=== PATIENT | female | born 1945 | race Caucasian/White ===

== ENCOUNTER → 2016-12-29 | Outpatient (CLI) | payer OTHER, MEDICARE | LOC: BHFA 13:45 | PROVIDERS: ATTEND Internal Medicine Cardiovascular Disease | DX: I48.91 Unspecified atrial fibrillation (principal); I34.0 Nonrheumatic mitral (valve) insufficiency; I07.0 Rheumatic tricuspid stenosis; I27.2 Other secondary pulmonary hypertension; I25.10 Atherosclerotic heart disease of native coronary artery without angina pectoris; I10 Essential (primary) hypertension ==

== ENCOUNTER 2017-02-22 06:12 | Inpatient (IN) | payer OTHER, MEDICARE ==
[2017-02-22] MEDS ORDERED: LIDOCAINE 1% 2 ML INJ ONE (06:52)
[2017-02-22] MEDS ORDERED: MIDAZOLAM 2 MG/2 ML VIAL ONE (06:58)
[2017-02-22] MEDS ORDERED: PROPOFOL/EMULSION 500 MG/50 ML BOTTLE IV ONE ×5 (06:59→11:54)
[2017-02-22] MEDS ORDERED: REMIFENTANIL HCL 1 MG VIAL ONE (06:59)
[2017-02-22] MEDS ORDERED: fentaNYL 100 MCG/2 ML INJ ONE ×2 (06:59)
[2017-02-22] MEDS ORDERED: LIDOCAINE 2% 5 ML SDV ONE (07:01)
[2017-02-22] MEDS ORDERED: CEFAZOLIN 2 GM/DEXTROSE/100 ML BAG IV ONE (07:16)
[2017-02-22] MEDS ORDERED: BUPIVACAINE/EPI 0.25% 30 ML SDV ONE ×2 (07:25→07:45)
[2017-02-22] MEDS ORDERED: THROMBIN (BOVINE) 20,000 UNIT VIAL TP ONE (07:25)
[2017-02-22] MEDS ORDERED: BACITRACIN 50,000 UNITS/10 ML SYR IRR ONE ×2 (07:26→10:17)
[2017-02-22] MEDS ORDERED: ceFAZolin 2 GM/DEXTROSE 100 ML IV ONE (07:30)
[2017-02-22] MEDS ORDERED: LIDOCAINE 1% 5 ML SDV ID PRN (07:40)
[2017-02-22] MEDS ORDERED: LR 1,000 ML IV ONE (07:40)
[2017-02-22] MEDS ORDERED: DEXMEDETOMIDINE HCL 400 MCG in NS 100 ML IV SCH ×2 (08:00→13:30)
[2017-02-22] MEDS ORDERED: CITRATE DEXTROSE SOLN 500 ML BAG ONE (08:18)
[2017-02-22] MEDS ORDERED: ALBUMIN 5% 250 ML BOTTLE IV ONE (09:34)
[2017-02-22] MEDS ORDERED: ROCURONIUM 50 MG/5 ML VIAL ONE (09:34)
[2017-02-22] MEDS ORDERED: morphINE PF 10 MG/10 ML INJ ONE (09:39)
[2017-02-22] MEDS ORDERED: PHENYLEPHRINE 10 MG/ML SDV ONE (09:49)
[2017-02-22] MEDS ORDERED: DEXAMETHASONE 4 MG/ML VIAL ONE (12:21)
[2017-02-22] MEDS ORDERED: VASOPRESSIN 20 UNIT/ML VIAL ONE (12:22)
[2017-02-22] MEDS ORDERED: ceFAZolin 1 GM VIAL ONE (12:22)
[2017-02-22] MEDS ORDERED: ONDANSETRON 4 MG/2 ML VIAL ONE (12:22)
[2017-02-22] MEDS ORDERED: DOCUSATE SODIUM 100 MG CAP PO PRN (13:15)
[2017-02-22] MEDS ORDERED: POLYETHYLENE GLYCOL 3350 17 GM PKT PO PRN (13:15)
[2017-02-22] MEDS ORDERED: ONDANSETRON DISINTEGRATING 4 MG TAB PO PRN (13:20)
[2017-02-22] MEDS ORDERED: BISACODYL 10 MG SUPP PR PRN (13:20)
[2017-02-22] MEDS ORDERED: LACTULOSE 20 GM/30 ML UDCUP PO PRN (13:20)
[2017-02-22] MEDS ORDERED: MAGNESIUM HYDROXIDE 30 ML UDCUP PO PRN (13:20)
[2017-02-22] MEDS ORDERED: diphenhydrAMINE 25 MG CAP PO PRN (13:20)
[2017-02-22] MEDS ORDERED: PROMETHAZINE HCL 25 MG/ML INJ IVP PRN (13:20)
[2017-02-22] MEDS ORDERED: ONDANSETRON 4 MG/2 ML VIAL IVP PRN (13:20)
[2017-02-22] MEDS ORDERED: METHOCARBAMOL 750 MG TAB PO PRN (13:20)
[2017-02-22] MEDS ORDERED: ACETAMINOPHEN 325 MG TAB PO PRN (13:20)
[2017-02-22] MEDS ORDERED: DIAZEPAM 10 MG/2 ML SYR IVP PRN (13:20)
--- NOTE | 2017-02-22 13:31 | POSTOPPROG ---
Post Op Note Date of Operation: 02/22/17 Surgeon: Soheila Carreon Spool Hauler: Grisel Carreon PA-C Anesthesiologist: Naveen Anesthesia: GET(General Endotracheal) Pre-op Diagnosis: lumbar stenosis Post-op Diagnosis: same Indication: pain, weakness Procedure: hardware removal, L23 TLIF, L1-4 posterior fusion Findings: Please see Dr Mahajan's operative report Inf/Abcess present in the surg proc area at time of surgery?: No Depth: Organ Space EBL: Greater than 1000 Complications: none Drains: Eber James Specimen(s): none PA Addendum - Addendum .: S: Pt resting in bed, asking for drink of water O: AAOx3 NAD VSS MAEx4 Motor 5/5 BUE/BLE +LT Incision dressed JPx1 Jackson in A: 71 yo F s/p hardware removal, L23 TLIF, L1-4 posterior fusion P: Pain management Brace when OOB TEDs, SCDs, lovenox POD#1 Post op xrays pending DC jackson in AM Precedex Call NS with any issues
--- NOTE | 2017-02-22 14:13 | GOP ---
[f rep st] OPERATIVE REPORT DATE OF OPERATION: 02/22/2017 SURGEON: Alphonse Evans MD TICKET PRINTER AND TAGGER: TONY Hernandez COMPLICATIONS: None ANESTHESIA: General. PREOPERATIVE DIAGNOSIS: 1. History of prior lumbar fusion L1-L2 and L3-S1 with adjacent level breakdown at L2-3 and severe spinal stenosis. 2. Radiculopathy. 3. Leg weakness. 4. Treatment refractory to nonoperative intervention PROCEDURE PERFORMED: 1. Posterior arthrodesis with approach to L1, L2, L3, L4, and L5. 2. Exploration of prior hardware at L1-L2 and L3-L4-L5. 3. Removal of prior hardware, left L2, bilateral L3, L4, and L5 posterior fusion systems. 4. Replacement of new left L2, bilateral L3 and bilateral L4 pedicle screws from the foc.usra system. 5. Posterolateral fusion on the left between L2-L3 with morselized autograft and allograft. 6. L2-L3 decompressive laminectomy with microdiskectomy and spinal cord decompression. 7. Right-sided L2-L3 transforaminal lumbar interbody fusion with a 6 x 26 mm titanium coated PEEK cage filled with morselized autograft and allograft. 8. Use of intraoperative 3D Stealth navigation. 9. Use of intraoperative fluoroscopy, less than 1 hour physician time. 10. Use of neuromonitoring. 11. Use of the operating microscope. 12. Injection of preservative-free intrathecal narcotics. 13. Revision of scar tissue, greater than 10 cm in length. POSTOPERATIVE DIAGNOSIS: 1. History of prior lumbar fusion L1-L2 and L3 through S1 with adjacent level breakdown at L2-3 with severe spinal stenosis. 2. Radiculopathy. 3. Leg weakness. 4. Treatment refractory to nonoperative intervention FINDINGS: per imaging SPECIMENS: None. ESTIMATED BLOOD LOSS: 1000 mL with replacement of 750 mL with Cell Saver. INDICATIONS: The patient is a 71-year-old, who has undergone multiple spinal fusions in the past and had a prior fusion at L1-L2 and L3 through S1. She had evidence of adjacent level breakdown between the L2-3 level with severe spinal stenosis and degenerative disk disease. After failing nonoperative intervention , after discussion of the risks, benefits, and alternatives, we decided to proceed forth with surgery as described above. DESCRIPTION OF PROCEDURE: The patient was brought to the operating theater and underwent general endotracheal anesthesia without complications. She had Venodynes, KANDACE hose and appropriate lines placed by Anesthesia. She was then flipped prone onto the Eber table. All bony processes were inspected and padded. The previous midline lumbar incision was identified and prepped and draped in the usual sterile surgical fashion. Time-out was completed per protocol. The patient received antibiotics within 1 hour of incision. The incision was infiltrated with Marcaine with epinephrine. I made an elliptical incision around the prior scar tissue approximately 12 cm in length and excised this with the scalpel blade and Bovie. The tissues were then taken down the midline through the scar tissue to the spinous process of L1-L2. We then continued in a subperiosteal dissection out to the old previous hardware laterally at the L1-L2 levels. We then skipped down to the L3 level. Again, we reidentified the hardware bilaterally and exposed the remainder of the hardware bilaterally at L3, L4, L5, and S1. The remainder of the hardware was exposed and explored, L1-L2 and L3 through S1. She was noted to have solid bony fusion throughout the L1-L2 and L3-S1 levels. At this point, using chisels and the Leksell rongeurs, I removed the excess bony overgrowth over the previous hardware. We sequentially removed the cap screws from the bilateral Q3-M6-B7-L4- L5 and S1 levels and passed them off the field. We then removed the bilateral rods between L1-L2 and between L3 and S1, including the crosslink, and passed these off the field. We then sequentially removed the bilateral pedicle screws from the L3-L4-L5 and S1 levels from the Medtronic Legacy System and passed them off the field. We then replaced the bilateral L3 and L4 pedicle screws with 6.5 x 50 mm screws bilaterally at L3 and 6.5 x 40 mm screws bilaterally at L4 from the Medtronic Solera system. We removed the left L2 pedicle screw and replaced it with a 6.5 x 40 mm screw from the Medtronic Solera system. A 3D Stealth navigation spin demonstrated good placement of the hardware. At this point, using the 3D Stealth -navigation, we exposed the remainder of the hemilaminotomy and laminectomy sites and completed a decompressive laminectomy at L2-L3 with resection of the pars between the L2-3 level on the right side. We retracted the thecal sac medially to reach around the ventral aspect and we were able to pull out several free fragments of disk material, both from the lateral recess and centrally using the angled nerve hooks. We retracted the thecal sac medially and completed a right-sided L2-3 diskectomy. We prepared the cartilaginous endplates and measured the interbody space. We placed a 6 x 26 mm titanium coated PEEK cage filled with a morselized autograft and allograft anteriorly and toward the midline. We packed additional morcellized autograft into the disk space for the interbody fusion and decorticated the bone on the left side between L2-3 for the posterolateral fusion. We placed 2 lordotic rods in the heads of the screws between L1 and L4 and secured down with cap screws, which were then tightened per the chlorine operator's setting. We placed morselized autograft and allograft to the left side between L2 through 3 for posterolateral fusion. We injected preservative-free intrathecal narcotics and left a drain in subfascial space. The wound was closed in multiple layers using Vicryl sutures to the deep layers and Dermabond for the skin after revising the wound. The patient's wounds were dressed sterilely. She was flipped supine onto the transfer cart. She was awakened, extubated, and taken to the recovery room in stable condition. There were no complications and no other changes on neuromonitoring throughout the procedure. Please note, the surgery was greater than 50% more challenging than the average surgery secondary to the patient's body habitus, including her scar tissue and exploration and removal of the prior hardware. /[id number]/MODL MTDD
[2017-02-22] MEDS: NS W/ 20 KCl/L 1,000 ML IV SCH (15:11)
[2017-02-22] MEDS: GABAPENTIN 300 MG CAP PO SCH ×2 (15:52→20:42)
[2017-02-22] MEDS: HYDROmorphONE/DILAUDID 1 MG/ML SYR IVP PRN (16:14)
--- NOTE | 2017-02-22 16:38 | GCON ---
[f rep st] CONSULTATION DATE OF CONSULTATION: 02/22/2017 REFERRING PHYSICIAN: Alphonse Evans MD REASON: Medical management. HISTORY OF PRESENT ILLNESS: This is a 71-year-old female who was admitted for spinal stenosis. Maryam garcia is a redo of a previous surgery, and she underwent removal and replacement of hardware from essent ially L1 to S1. Apparently surgery went well with 1000 mL of blood loss, and 750 was replaced by Ce ll Saver. She has a history of atrial fibrillation, has been off her Eliquis for the last week. Josie ferrer also has a history of hypothyroidism and anxiety. She is doing well postoperatively. She is comp laining of right hand numbness. It is not in her arm. She has no weakness. Feels like her hand is asleep. She does have an IV in her left distal forearm right in the middle which may be aggravatin g her median nerve. Otherwise, she is feeling well. No chest pain. She is in sinus rhythm on tele metry. REVIEW OF SYSTEMS: A 10-point review of systems was obtained and is otherwise negative. PAST MEDICAL HISTORY: 1. Previous back pain and lumbar fusion. 2. Atrial fibrillation, status post cardioversion several times with last one last year. 3. Hypothyroidism. 4. Previous lumbar surgery at [facility] in 2014 with multiple complications including dural leak, sep sis, and atrial fibrillation. 5. History of MRSA infection during that time. 6. Depression. 7. Hypertension. MEDICATIONS: Reviewed. ALLERGIES: CHRISTIANO inhibitors. FAMILY HISTORY: Colon cancer. SOCIAL HISTORY: No smoking. Occasional alcohol. PHYSICAL EXAM: VITAL SIGNS: Afebrile, blood pressure is 108/60, heart rate in the 60s. Normal sin us rhythm. Oxygen saturation 98% on 3 L. GENERAL: The patient is well developed, no apparent dist ress. HEENT: Nonicteric sclerae. Extraocular movements intact. Moist mucous membranes. NECK: S upple. No thyromegaly. LUNGS: Good effort. Clear to auscultation bilaterally. CARDIOVASCULAR: Regular rate and rhythm. No murmurs or gallops. ABDOMEN: Positive bowel sounds. Soft, nontender, nondistended. No hepatosplenomegaly. EXTREMITIES: No clubbing, cyanosis, or edema. SKIN: Witho ut rash. Warm, dry, intact. NEUROLOGIC: Alert x3. there is decreased sensation in the right hand but normal fundraiser strength. This does not go beyond the hand. PSYCH: Normal mood and affect. LABORATORIES: Preop labs shows CBC which is normal, chemistry which is also normal. Telemetry personally reviewed and interpreted shows normal sinus rhythm. ASSESSMENT: This is a 71-year-old female with a history of atrial fibrillation, status post lumbar surgery. PLAN: 1. Status post extensive lumbar surgery as per Neurosurgery. 2. Atrial fibrillation. Will continue on the flecainide and atenolol. Start anticoagulation whene kesha appropriate per Neurosurgery. 3. Right-handed numbness. I think this may be some median nerve irritation from her IV. I have in structed the nurse to take this IV out. 4. History of MRSA. Thank you for this consultation, and we will follow along with you. /[id number]/MODL
[2017-02-22] MEDS ORDERED: GABAPENTIN 300 MG CAP PO PRN (17:00)
[2017-02-22] MEDS: hydrOXYzine HCL 25 MG TAB PO PRN ×2 (17:30→23:36)
[2017-02-22] MEDS: FLECAINIDE ACETATE 100 MG TAB PO SCH (20:41)
[2017-02-22] MEDS: DIAZEPAM 5 MG TAB PO PRN (20:43)
[2017-02-22] MEDS: CYCLOBENZAPRINE 10 MG TAB PO SCH (20:43)
[2017-02-22] MEDS: morphINE SR 15 MG TAB PO SCH (20:45)
[2017-02-22] MEDS: traZODone 50 MG TAB PO SCH (20:45)
[2017-02-22] MEDS: SENNOSIDES/DOCUSATE SODIUM TAB PO SCH (20:46)
[2017-02-22] MEDS: FAMOTIDINE 20 MG/NACL 50 ML IV SCH (20:57)
[2017-02-23] MEDS: NS W/ 20 KCl/L 1,000 ML IV SCH (02:59)
[2017-02-23] MEDS: LEVOTHYROXINE 150 MCG TAB PO SCH (05:01)
[2017-02-23 05:36] LABS: % IMMATURE GRANULYOCYTES 0.6 % (0.0-1.1); ABSOLUTE IMMATURE GRANULOCYTES 0.08 10^3/uL (0.00-0.10); ADD DIFF? NO; ADD MORPH? NO; ADD SCAN? NO; ATYPICAL LYMPHOCYTE FLAG 0 (0-99); FRAGMENT RBC FLAG 0 (0-99); HEMATOCRIT 29.7 % (38.0-47.0); HEMOGLOBIN 9.4 g/dL (12.6-16.3); LEFT SHIFT FLG 0 (0-99); LIPEMIA HEMOLYSIS FLAG 80 (0-99); MEAN CELL HEMOGLOBIN 28.3 pg (27.9-34.1); MEAN CELL HEMOGLOBIN CONCENTR. 31.6 g/dL (32.4-36.7); MEAN CELL VOLUME 89.5 fL (81.5-99.8); MEAN PLATELET VOLUME 10.7 fL (8.7-11.7); PLATELET CLUMPS FLAG 0 (0-99); PLATELET COUNT 172 10^3/uL (150-400); RED BLOOD CELL COUNT 3.32 10^6/uL (4.18-5.33); RED CELL DISTRIBUTION WIDTH 15.3 % (11.5-15.2)
[2017-02-23] MEDS: hydrOXYzine HCL 25 MG TAB PO PRN ×3 (05:39→18:07)
[2017-02-23] MEDS: oxyCODONE IR 5 MG TAB PO PRN ×3 (07:03→18:59)
[2017-02-23 07:54] LABS: ANION GAP 9 mEq/L (8-16); CALCIUM 8.4 mg/dL (8.5-10.4); CARBON DIOXIDE 22 mEq/l (22-31); CHLORIDE 99 mEq/L (97-110); GLOMERULAR FILTRATION RATE 54; GLUCOSE 113 mg/dL (70-100); POTASSIUM 4.9 mEq/L (3.5-5.2); SODIUM 130 mEq/L (134-144)
[2017-02-23] MEDS: DIAZEPAM 5 MG TAB PO PRN ×2 (08:12→14:28)
[2017-02-23] MEDS: morphINE SR 15 MG TAB PO SCH ×2 (08:12→20:16)
[2017-02-23] MEDS: GABAPENTIN 300 MG CAP PO SCH ×3 (08:13→21:26)
[2017-02-23] MEDS: VENLAFAXINE HCL 25 MG TAB PO SCH (08:16)
[2017-02-23] MEDS: LIOTHYRONINE SODIUM 5 MCG TAB PO SCH (08:17)
[2017-02-23] MEDS: FAMOTIDINE 20 MG/NACL 50 ML IV SCH ×2 (08:19→21:27)
[2017-02-23] MEDS: FLECAINIDE ACETATE 100 MG TAB PO SCH ×2 (08:20→20:16)
[2017-02-23] MEDS: SENNOSIDES/DOCUSATE SODIUM TAB PO SCH ×2 (08:23→20:20)
[2017-02-23] MEDS: POTASSIUM CL 20 MEQ TAB PO SCH (08:23)
[2017-02-23] MEDS: FUROSEMIDE 40 MG TAB PO SCH (08:28)
[2017-02-23] MEDS: ENOXAPARIN 40 MG/0.4 ML SYR SC SCH (08:28)
[2017-02-23] MEDS: ATENOLOL 25 MG TAB PO SCH (09:00)
--- NOTE | 2017-02-23 09:29 | NEUSURGPN ---
Date of Surgery: 02/22/17 Post Op Day: 1 Assessment/Plan: 71 yo female s/p hardware removal, L2/3 TLIF/laminectomy, and L1-L4 posterior fusion - neuro stable. Right UE numbness likely due to positioning, continue to monitor - pain control - postop L-spine x-rays pending - wear brace when out of bed - PT/OT - Continue LUCIANO - Transfer to the floor Subjective: Having back pain. Unsure if LE weakness is improved. Was unable to sleep last night. Objective: Awake. Alert. PERRL. EOMI Facial expression symmetrical Muscle strength UE 5/5 Left LE 5/5, Right LE hip flexion 3/5, knee flex/ext 4-/5, DF/PF 3/5 Catheter Insertion Date: 02/22/17 - Physician Patient Seen by : Nathan Neurosurgery Physical Exam - Vitals, I&O, Labs I and O 02/22/17 02/23/17 02/24/17 05:59 05:59 05:59 Intake Total 4538 Output Total 3565 100 Balance 973 -100 Intake: Oral (ml) 1050 IV Intake (ml) 1650 IV Infused (ml) 1088 Famotidine 20 mg/NaCl 50 50 ml @ 200 mls/hr IV Q12HRS MARZENA Rx#:[id number] NS W/ 20 KCl/L 1,000 ml @ 573 75 mls/hr IV CONT MARZENA Rx #:[id number] ceFAZolin 2 GM/DEXTROSE 465 100 ml @ 200 mls/hr IV ONCALL ONE Rx#:[id number] Autologous Blood (ml) 750 Output: Urine (ml) 1925 100 Catheter 1925 100 Estimated Blood Loss (ml) 1200 Wound Drainage (ml) 440 Back Eber James 440 Vital Signs Temp Pulse Resp BP Pulse Ox 36.8 C 74 13 114/36 L 97 02/23/17 08:00 02/23/17 08:00 02/23/17 08:00 02/23/17 08:00 02/23/17 08:00 Laboratory Results 02/23/17 05:20 02/23/17 05:20 ICD10 Worksheet Patient Problems: Problems Problem Status Onset Lumbar stenosis Acute - ICD10 Problem Qualifiers (1) Lumbar stenosis
[2017-02-23] MEDS: HYDROmorphONE/DILAUDID 1 MG/ML SYR IVP PRN (11:36)
--- NOTE | 2017-02-23 13:42 | HOSPPROG ---
Hospitalist Progress Note Assessment/Plan: * status post lumbar fusion revision * doing well postoperatively * do wonder if the itching is due to the MS Contin which is new for her, would consider stopping this * history of atrial fibrillation * in sinus rhythm currently * restart Eliquis whenever safe per neurosurgery * hypertension * history of MRSA * DVT prophylaxis * Lovenox Subjective: right hand numbness improving. Feels itchy all over which has kept her up all night. Pain is pretty well controlled Objective: Vital Signs Temp Pulse Resp BP Pulse Ox 36.8 C 90 13 114/36 L 88 L 02/23/17 08:00 02/23/17 11:30 02/23/17 08:00 02/23/17 08:00 02/23/17 11:30 Laboratory Results 02/23/17 05:20 02/23/17 05:20 02/22/17 02/23/17 02/24/17 05:59 05:59 05:59 Intake Total 4538 Output Total 3565 180 Balance 973 -180 tele personally reviewed interpreted normal sinus rhythm discussed with Neurosurgery - Physical Exam Constitutional: no apparent distress, appears nourished, not in pain Eyes: anicteric sclera, EOMI Ears, Nose, Mouth, Throat: moist mucous membranes, hearing normal, ears appear normal Cardiovascular: regular rate and rhythym, no murmur, rub, or gallop Respiratory: no respiratory distress, no rales or rhonchi, clear to auscultation Gastrointestinal: normoactive bowel sounds, soft, non-tender abdomen, no palpable masses Skin: warm Neurologic: AAOx3, other ( no weakness in right hand) Psychiatric: interacting appropriately, not anxious, not encephalopathic, thought process linear ICD10 Worksheet Patient Problems: Problems Problem Status Onset Lumbar stenosis Acute
[2017-02-23] MEDS: traZODone 50 MG TAB PO SCH (20:16)
[2017-02-23] MEDS: CYCLOBENZAPRINE 10 MG TAB PO SCH (20:16)
[2017-02-23] MEDS ORDERED: ALPRAZolam 0.25 MG TAB PO PRN (20:47)
[2017-02-24] MEDS: oxyCODONE IR 5 MG TAB PO PRN ×2 (05:10→16:42)
[2017-02-24] MEDS: LEVOTHYROXINE 150 MCG TAB PO SCH (05:11)
[2017-02-24] MEDS: DIAZEPAM 5 MG TAB PO PRN (05:21)
--- NOTE | 2017-02-24 08:02 | NEUSURGPN ---
Assessment/Plan: 71 yo female s/p hardware removal, L2/3 TLIF/laminectomy, and L1-L4 posterior fusion - neuro stable. Right UE numbness likely due to positioning, continue to monitor - pt states this is improving - pruritis improving - pain control - postop L-spine x-rays pending - wear brace when out of bed - PT/OT - urinary retention - bladder scan protocol. has required straight cath x2 - if not able to void again today replace jackson. - Continue LUCIANO - Transfer to the floor - D/w Dr Evans - Call NS with any issues Subjective: Pt resting in bed, worried about not being able to urinate. Objective: Sleepy but awakens easily NAD VSS MAEx4 Motor 5/5 BLE with exception of R EHL 4/5 +LT JPx1 Urinary Catheter in Place: No Catheter Insertion Date: 02/22/17 - Physician Discussed Patient with : Nathan Neurosurgery Physical Exam - Vitals, I&O, Labs I and O 02/23/17 02/24/17 02/25/17 05:59 05:59 05:59 Intake Total 4538 1620 Output Total 3565 2270 Balance 973 -650 Intake: Oral (ml) 1050 1220 IV Intake (ml) 1650 IV Infused (ml) 1088 400 Famotidine 20 mg/NaCl 50 50 ml @ 200 mls/hr IV Q12HRS MARZENA Rx#:[id number] NS W/ 20 KCl/L 1,000 ml @ 573 400 75 mls/hr IV CONT MARZENA Rx #:[id number] ceFAZolin 2 GM/DEXTROSE 465 100 ml @ 200 mls/hr IV ONCALL ONE Rx#:[id number] Autologous Blood (ml) 750 Output: Urine (ml) 1925 1850 Catheter 192 1850 Estimated Blood Loss (ml) 1200 Wound Drainage (ml) 440 420 Back Eber Jmaes 440 420 Other: Output Comment Catheter straight cathed Bladder Scan Volume (ml) Catheter 183 Vital Signs Temp Pulse Resp BP Pulse Ox 36.4 C 93 14 114/57 L 100 02/24/17 07:38 02/24/17 07:38 02/24/17 07:38 02/24/17 07:38 02/24/17 07:38 Laboratory Results 02/23/17 05:20 02/23/17 05:20 ICD10 Worksheet Patient Problems: Problems Problem Status Onset Lumbar stenosis Acute
[2017-02-24] MEDS: GABAPENTIN 300 MG CAP PO SCH ×3 (08:36→20:10)
[2017-02-24] MEDS: POTASSIUM CL 20 MEQ TAB PO SCH (08:36)
[2017-02-24] MEDS: LIOTHYRONINE SODIUM 5 MCG TAB PO SCH (08:36)
[2017-02-24] MEDS: FLECAINIDE ACETATE 100 MG TAB PO SCH ×2 (08:37→20:10)
[2017-02-24] MEDS: SENNOSIDES/DOCUSATE SODIUM TAB PO SCH ×2 (08:37→20:09)
[2017-02-24] MEDS: FAMOTIDINE 20 MG/NACL 50 ML IV SCH (08:38)
[2017-02-24] MEDS: VENLAFAXINE HCL 25 MG TAB PO SCH (08:38)
[2017-02-24] MEDS: morphINE SR 15 MG TAB PO SCH ×2 (08:38→20:13)
[2017-02-24] MEDS: FUROSEMIDE 40 MG TAB PO SCH (08:38)
[2017-02-24] MEDS: ATENOLOL 25 MG TAB PO SCH (08:38)
[2017-02-24] MEDS: ENOXAPARIN 40 MG/0.4 ML SYR SC SCH (08:38)
--- NOTE | 2017-02-24 09:54 | HOSPPROG ---
Hospitalist Progress Note Assessment/Plan: 71 yo F pod 2 s/p lumbar spine surgery urinary retention: 2/2 anticholinergic effect of meds in last 24 hour, has received relatively high doses dilaudid, benadryl, hydroxyzine, oxycodone and flexeril reasonable to place jackson but need to limit prn meds dc IV benadryl, hydroxyzine, xanax AF: clinically in sinus continue BB and flecainaide restart NOAC when OK from neurosurgery proph: lovenox pain: has continuous narcotic use and therefore high pain med requirements add scheduled tylenol R hand weakness: improving Subjective: case d/w dr limon. ongoing urinary retention Objective: Vital Signs Temp Pulse Resp BP Pulse Ox 36.4 C 90 14 129/57 H 100 02/24/17 07:38 02/24/17 08:38 02/24/17 07:38 02/24/17 08:38 02/24/17 07:38 Laboratory Results 02/23/17 05:20 02/23/17 05:20 02/23/17 02/24/17 02/25/17 05:59 05:59 05:59 Intake Total 4538 1620 Output Total 3565 2270 35 Balance 973 -650 -35 - Physical Exam Constitutional: no apparent distress, appears nourished Eyes: PERRL, anicteric sclera Ears, Nose, Mouth, Throat: moist mucous membranes, hearing normal Cardiovascular: regular rate and rhythym, no murmur, rub, or gallop, No irregularly irregular Respiratory: no respiratory distress, no rales or rhonchi Gastrointestinal: normoactive bowel sounds, soft, non-tender abdomen Genitourinary: No no bladder fullness, No jackson in urethra Skin: warm, normal color Musculoskeletal: full muscle strength, no muscle tenderness Neurologic: AAOx3, sensation intact bilaterally Psychiatric: interacting appropriately, not anxious Lymph, Heme, Immunologic: no cervical LAD, no supraclavicular LAD ICD10 Worksheet Patient Problems: Problems Problem Status Onset Lumbar stenosis Acute
[2017-02-24] MEDS: ACETAMINOPHEN 500 MG TAB PO SCH ×2 (14:34→20:11)
[2017-02-24] MEDS: CYCLOBENZAPRINE 10 MG TAB PO SCH (20:09)
[2017-02-24] MEDS: traZODone 50 MG TAB PO SCH (20:11)
[2017-02-24] MEDS ORDERED: hydrOXYzine HCL 25 MG TAB PO ONE (21:15)
[2017-02-25] MEDS: ACETAMINOPHEN 500 MG TAB PO SCH ×3 (05:58→20:47)
[2017-02-25] MEDS: LEVOTHYROXINE 150 MCG TAB PO SCH (05:58)
[2017-02-25] MEDS: oxyCODONE IR 5 MG TAB PO PRN ×2 (06:00→09:02)
[2017-02-25] MEDS: ENOXAPARIN 40 MG/0.4 ML SYR SC SCH (08:39)
[2017-02-25] MEDS: SENNOSIDES/DOCUSATE SODIUM TAB PO SCH ×2 (08:40→20:21)
[2017-02-25] MEDS: POTASSIUM CL 20 MEQ TAB PO SCH (08:40)
[2017-02-25] MEDS: GABAPENTIN 300 MG CAP PO SCH ×3 (08:40→20:45)
[2017-02-25] MEDS: ATENOLOL 25 MG TAB PO SCH (08:45)
[2017-02-25] MEDS: FLECAINIDE ACETATE 100 MG TAB PO SCH ×2 (08:46→20:48)
[2017-02-25] MEDS: VENLAFAXINE HCL 25 MG TAB PO SCH (08:48)
[2017-02-25] MEDS: morphINE SR 15 MG TAB PO SCH (08:48)
[2017-02-25] MEDS: DIAZEPAM 5 MG TAB PO PRN (09:02)
--- NOTE | 2017-02-25 10:29 | NEUSURGPN ---
Assessment/Plan: 71 yo female s/p hardware removal, L2/3 TLIF/laminectomy, and L1-L4 posterior fusion - neuro stable. Right UE numbness likely due to positioning, continue to monitor - pt states this is improving - pruritis improving, DC MS contin today. - pain control - postop L-spine x-rays show stable hardware - wear brace when out of bed - PT/OT - urinary retention - jackson replaced, limiting meds. consider voiding trial tomorrow? await medicine recs. -Appreciate medicine assisting in care of this patient - DC LUCIANO drain - D/w Dr Evans - Call NS with any issues -Dispo: work towards DC tue vs tuesday pending clinical course Subjective: Pt resting in bed, concerned that her thinks she is crazy because she was confused yesterday. Objective: AAOx3 NAD VSS MAEx4 Motor 5/5 BLE with exception of L EHL 4/5 +LT Urinary Catheter in Place: Yes Urinary Catheter Indication: Acute Urinary Retention Catheter Insertion Date: 02/24/17 - Physician Discussed Patient with : Nathan Neurosurgery Physical Exam - Vitals, I&O, Labs I and O 02/24/17 02/25/17 02/26/17 05:59 05:59 05:59 Intake Total 1620 500 Output Total 2270 1900 Balance -650 -1400 Intake: Oral (ml) 1220 500 IV Infused (ml) 400 NS W/ 20 KCl/L 1,000 ml @ 400 75 mls/hr IV CONT MARZENA Rx #:[id number] Output: Urine (ml) 1850 1775 Catheter 1850 1775 Wound Drainage (ml) 420 125 Back Eber James 420 125 Other: Intake Quantity Yes Sufficient Output Comment Catheter straight cathed Number of Voids Catheter 1 Bladder Scan Volume (ml) Catheter 183 Vital Signs Temp Pulse Resp BP Pulse Ox 37.2 C 110 H 16 114/41 L 94 02/25/17 07:17 02/25/17 07:17 02/25/17 07:17 02/25/17 07:17 02/25/17 07:17 Laboratory Results 02/23/17 05:20 02/23/17 05:20 ICD10 Worksheet Patient Problems: Problems Problem Status Onset Lumbar stenosis Acute
[2017-02-25] MEDS: LIOTHYRONINE SODIUM 5 MCG TAB PO SCH (11:56)
[2017-02-25] MEDS: FUROSEMIDE 40 MG TAB PO SCH (12:03)
[2017-02-25] MEDS ORDERED: DIAZEPAM 5 MG TAB PO PRN (14:44)
[2017-02-25] MEDS ORDERED: HYDROmorphONE/DILAUDID 1 MG/ML SYR IVP PRN (14:45)
--- NOTE | 2017-02-25 14:47 | HOSPPROG ---
Hospitalist Progress Note Assessment/Plan: 71 yo F pod 2 s/p lumbar spine surgery urinary retention: 2/2 anticholinergic effect of meds in last 24 hour, has received relatively high doses dilaudid, benadryl, hydroxyzine, oxycodone and flexeril reasonable to place jackson but need to limit prn meds dc IV benadryl, hydroxyzine, xanax i wrote to dc jackson AM 02/26 AF: clinically in sinus continue BB and flecainaide restart NOAC when OK from neurosurgery proph: lovenox pain: has continuous narcotic use and therefore high pain med requirements add scheduled tylenol R hand weakness: improving encephlaopathy: almost certainly med related I have again decreased the many prn meds Subjective: c/o pain in neck. nursing staff notes confusion Objective: Vital Signs Temp Pulse Resp BP Pulse Ox 37.2 C 84 16 114/41 L 86 L 02/25/17 07:17 02/25/17 10:41 02/25/17 07:17 02/25/17 07:17 02/25/17 10:41 Laboratory Results 02/23/17 05:20 02/23/17 05:20 02/24/17 02/25/17 02/26/17 05:59 05:59 05:59 Intake Total 1620 500 Output Total 2270 1900 Balance -650 -1400 - Physical Exam Constitutional: no apparent distress, appears nourished, not in pain Eyes: PERRL, anicteric sclera, EOMI Ears, Nose, Mouth, Throat: moist mucous membranes, hearing normal, ears appear normal Cardiovascular: regular rate and rhythym, no murmur, rub, or gallop, No tachycardia Respiratory: no respiratory distress, no rales or rhonchi Gastrointestinal: normoactive bowel sounds, soft, non-tender abdomen Genitourinary: no bladder fullness, jackson in urethra Skin: warm, normal color Musculoskeletal: full muscle strength, no muscle tenderness Neurologic: other (alert, slightly confused c/w yesterday) Psychiatric: interacting appropriately, not anxious Lymph, Heme, Immunologic: no cervical LAD ICD10 Worksheet Patient Problems: Problems Problem Status Onset Lumbar stenosis Acute
[2017-02-25] MEDS: METHOCARBAMOL 750 MG TAB PO PRN (17:13)
[2017-02-25] MEDS: traMADol 50 MG TAB PO PRN ×2 (17:14→20:46)
[2017-02-25] MEDS: traZODone 50 MG TAB PO SCH (20:44)
[2017-02-25] MEDS: CYCLOBENZAPRINE 10 MG TAB PO SCH (20:47)
[2017-02-26] MEDS: ACETAMINOPHEN 500 MG TAB PO SCH ×3 (05:10→20:07)
[2017-02-26] MEDS: traMADol 50 MG TAB PO PRN ×5 (05:10→23:51)
[2017-02-26] MEDS: LEVOTHYROXINE 150 MCG TAB PO SCH (05:10)
[2017-02-26] MEDS: FLECAINIDE ACETATE 100 MG TAB PO SCH ×2 (08:34→20:07)
[2017-02-26] MEDS: ENOXAPARIN 40 MG/0.4 ML SYR SC SCH (08:34)
[2017-02-26] MEDS: POTASSIUM CL 20 MEQ TAB PO SCH (08:35)
[2017-02-26] MEDS: LIOTHYRONINE SODIUM 5 MCG TAB PO SCH (08:35)
[2017-02-26] MEDS: GABAPENTIN 300 MG CAP PO SCH ×3 (08:36→20:06)
[2017-02-26] MEDS: SENNOSIDES/DOCUSATE SODIUM TAB PO SCH ×2 (08:36→20:08)
[2017-02-26] MEDS: FUROSEMIDE 40 MG TAB PO SCH (08:37)
[2017-02-26] MEDS: ATENOLOL 25 MG TAB PO SCH (08:38)
[2017-02-26] MEDS: METHOCARBAMOL 750 MG TAB PO PRN ×3 (09:05→21:27)
--- NOTE | 2017-02-26 12:56 | NEUSURGPN ---
Assessment/Plan: 71 yo female s/p hardware removal, L2/3 TLIF/laminectomy, and L1-L4 posterior fusion - neuro stable. Right UE numbness likely due to positioning, continue to monitor - pt states this is improving - pain control- doing well on current regimen - postop L-spine x-rays show stable hardware - wear brace when out of bed - PT/OT - urinary retention - jackson replaced for this but was removed this am. Will see if able to void on her own -Appreciate medicine assisting in care of this patient -Dispo- With [facility] as soon as able to void on own - D/w Dr Evans - Call NS with any issues -Dispo: work towards DC Later today vs Tuesday Subjective: Patient is resting in bed and doing well today. Has been up with PT. Jackson removed this morning and hopes she can void on her own. Denies leg pain. Objective: AAOx3 NAD VSS MAEx4 Motor 5/5 BLE with exception of L EHL 4/5 +LT Catheter Insertion Date: 02/24/17 - Physician Discussed Patient with : Nathan Neurosurgery Physical Exam - Vitals, I&O, Labs I and O 02/25/17 02/26/17 02/27/17 05:59 05:59 05:59 Intake Total 500 240 Output Total 1900 2580 Balance -1400 -2340 Intake: Oral (ml) 500 240 Output: Urine (ml) 1775 2500 Catheter 1775 2500 Wound Drainage (ml) 125 80 Back Eber James 125 80 Other: Intake Quantity Yes Sufficient Number of Voids Catheter 1 Vital Signs Temp Pulse Resp BP Pulse Ox 36.9 C 78 14 123/51 H 93 02/26/17 08:11 02/26/17 08:11 02/26/17 08:11 02/26/17 08:11 02/26/17 08:11 Laboratory Results 02/23/17 05:20 02/23/17 05:20 ICD10 Worksheet Patient Problems: Problems Problem Status Onset Lumbar stenosis Acute
[2017-02-26] MEDS ORDERED: HYDROCODONE/APAP 5/325 TAB PO PRN (15:06)
--- NOTE | 2017-02-26 15:23 | HOSPPROG ---
Hospitalist Progress Note Assessment/Plan: 71 yo F pod 2 s/p lumbar spine surgery urinary retention: 2/2 anticholinergic effect of meds in last 24 hour, has received relatively high doses dilaudid, benadryl, hydroxyzine, oxycodone and flexeril med effect allow patients bladder to fill, straightcathing for bladder volumes > 1200 or discomfort AF: clinically in sinus continue BB and flecainaide restart NOAC when OK from neurosurgery proph: lovenox pain: has continuous narcotic use and therefore high pain med requirements add scheduled tylenol R hand weakness: improving encephlaopathy: almost certainly med related I have again decreased the many prn meds constipation: increase miralax to bid Subjective: cannot urinate. minimal urge. constipated Objective: Vital Signs Temp Pulse Resp BP Pulse Ox 36.9 C 78 14 123/51 H 93 02/26/17 08:11 02/26/17 08:11 02/26/17 08:11 02/26/17 08:11 02/26/17 08:11 Laboratory Results 02/23/17 05:20 02/23/17 05:20 02/25/17 02/26/17 02/27/17 05:59 05:59 05:59 Intake Total 500 240 Output Total 1900 2580 Balance -1400 -2340 - Physical Exam Constitutional: no apparent distress, appears nourished Eyes: PERRL, EOMI Ears, Nose, Mouth, Throat: moist mucous membranes, ears appear normal Cardiovascular: regular rate and rhythym, no murmur, rub, or gallop Respiratory: no respiratory distress, no rales or rhonchi Gastrointestinal: normoactive bowel sounds, soft, non-tender abdomen Genitourinary: No jackson in urethra Skin: warm, normal color Musculoskeletal: full muscle strength, no muscle tenderness Neurologic: AAOx3, sensation intact bilaterally ICD10 Worksheet Patient Problems: Problems Problem Status Onset Lumbar stenosis Acute
[2017-02-26] MEDS: HYDROmorphONE/DILAUDID 4 MG TAB PO PRN ×2 (15:43→20:02)
[2017-02-26] MEDS: VENLAFAXINE HCL 25 MG TAB PO SCH (16:08)
[2017-02-26] MEDS: POLYETHYLENE GLYCOL 3350 17 GM PKT PO SCH (20:08)
[2017-02-26] MEDS: CYCLOBENZAPRINE 10 MG TAB PO SCH (20:08)
[2017-02-26] MEDS: traZODone 50 MG TAB PO SCH (21:27)
[2017-02-27] MEDS: ACETAMINOPHEN 500 MG TAB PO SCH ×3 (05:48→20:18)
[2017-02-27] MEDS: LEVOTHYROXINE 150 MCG TAB PO SCH (05:48)
[2017-02-27] MEDS: traMADol 50 MG TAB PO PRN ×3 (05:49→15:47)
[2017-02-27] MEDS: FLECAINIDE ACETATE 100 MG TAB PO SCH ×2 (08:12→20:19)
[2017-02-27] MEDS: GABAPENTIN 300 MG CAP PO SCH ×3 (08:12→20:19)
[2017-02-27] MEDS: POTASSIUM CL 20 MEQ TAB PO SCH (08:12)
[2017-02-27] MEDS: LIOTHYRONINE SODIUM 5 MCG TAB PO SCH (08:13)
[2017-02-27] MEDS: SENNOSIDES/DOCUSATE SODIUM TAB PO SCH ×2 (08:14→20:18)
[2017-02-27] MEDS: VENLAFAXINE HCL 25 MG TAB PO SCH (08:14)
[2017-02-27] MEDS: ATENOLOL 25 MG TAB PO SCH (08:14)
[2017-02-27] MEDS: ENOXAPARIN 40 MG/0.4 ML SYR SC SCH (08:15)
[2017-02-27] MEDS: HYDROmorphONE/DILAUDID 4 MG TAB PO PRN ×3 (08:15→17:41)
[2017-02-27] MEDS: FUROSEMIDE 40 MG TAB PO SCH (08:15)
[2017-02-27] MEDS: POLYETHYLENE GLYCOL 3350 17 GM PKT PO SCH ×2 (08:16→17:44)
--- NOTE | 2017-02-27 10:48 | NEUSURGPN ---
Assessment/Plan: 71 yo female s/p hardware removal, L2/3 TLIF/laminectomy, and L1-L4 posterior fusion - neuro stable. Right UE numbness likely due to positioning, continue to monitor - pt states this is improving - pain control- doing well on current regimen - postop L-spine x-rays show stable hardware - wear brace when out of bed - PT/OT- patient was said to have episode where she felt weak yesterday and couldn't walk veryfar even with walker, may need SNF but patient would like to try again today to try and get cleared for HHC. Will leave up to PT.OT recommendation - urinary retention - jackson removed 02/26, and voiding well on her own now at bedside comode -Appreciate medicine assisting in care of this patient -Dispo- once cleared by therapies to either HHC or SNF - D/w Dr Evans - Call NS with any issues -Dispo: work towards DC later today vs tuesday Subjective: Patient is resting in bed and doing well today. Said after walking more yesterday was too tired and became weak and needed to get help to sit down on the ground. Better today and wantes to try and walk more with PT today in hopes to go home with HHC instead of SNF. Back pain tolerable on medication regimen. Objective: AAOx3 NAD VSS MAEx4 Motor 5/5 BLE with exception of L EHL 4/5 +LT Incision c/d/i- Catheter Insertion Date: 02/24/17 - Physician Discussed Patient with : [facility] Neuro[facility] Physical Exam - Vitals, I&O, Labs I and O 02/26/17 02/27/17 02/28/17 05:59 05:59 05:59 Intake Total 240 Output Total 2580 750 Balance -2340 -750 Intake: Oral (ml) 240 Output: Urine (ml) 2500 750 Bedpan 0 Bedside Commode 750 Catheter 2500 Wound Drainage (ml) 80 Back Eber James 80 Other: Number of Voids Bedside Commode 1 Catheter 1 Bladder Scan Volume (ml) Bedpan 200 Bedside Commode 950 Vital Signs Temp Pulse Resp BP Pulse Ox 36.9 C 82 14 145/55 H 97 02/27/17 08:00 02/27/17 08:14 02/27/17 08:00 02/27/17 08:14 02/27/17 08:00 Laboratory Results 02/23/17 05:20 02/23/17 05:20 ICD10 Worksheet Patient Problems: Problems Problem Status Onset Lumbar stenosis Acute
[2017-02-27] MEDS: METHOCARBAMOL 750 MG TAB PO PRN ×2 (11:21→17:41)
[2017-02-27] MEDS ORDERED: MAGNESIUM CITRATE 300 ML BOTTLE PO ONE (14:24)
--- NOTE | 2017-02-27 14:28 | HOSPPROG ---
Hospitalist Progress Note Assessment/Plan: 71 yo F pod 2 s/p lumbar spine surgery urinary retention: 2/2 anticholinergic effect of meds in last 24 hour, has received relatively high doses dilaudid, benadryl, hydroxyzine, oxycodone and flexeril med effect allow patients bladder to fill, straightcathing for bladder volumes > 1200 or discomfort appears to have resolved AF: clinically in sinus continue BB and flecainaide restart NOAC when OK from neurosurgery proph: lovenox pain: has continuous narcotic use and therefore high pain med requirements add scheduled tylenol R hand weakness: improving encephlaopathy: almost certainly med related I have again decreased the many prn meds constipation: increase miralax to bid give mag citrate today nursing and patient to determine timing Subjective: constipated. able to urinate Objective: Vital Signs Temp Pulse Resp BP Pulse Ox 36.9 C 82 14 145/55 H 97 02/27/17 08:00 02/27/17 08:14 02/27/17 08:00 02/27/17 08:14 02/27/17 08:00 Laboratory Results 02/23/17 05:20 02/23/17 05:20 02/26/17 02/27/17 02/28/17 05:59 05:59 05:59 Intake Total 240 Output Total 2580 750 1200 Balance -2340 750 1200 - Physical Exam Constitutional: no apparent distress, appears nourished Eyes: PERRL, anicteric sclera Ears, Nose, Mouth, Throat: moist mucous membranes, hearing normal Cardiovascular: regular rate and rhythym, no murmur, rub, or gallop Respiratory: no respiratory distress, no rales or rhonchi Gastrointestinal: normoactive bowel sounds, soft, non-tender abdomen Genitourinary: No jackson in urethra Skin: warm, normal color Musculoskeletal: full muscle strength Neurologic: AAOx3, sensation intact bilaterally Psychiatric: interacting appropriately, not anxious ICD10 Worksheet Patient Problems: Problems Problem Status Onset Lumbar stenosis Acute
[2017-02-27] MEDS: CYCLOBENZAPRINE 10 MG TAB PO SCH (20:19)
[2017-02-27] MEDS: traZODone 50 MG TAB PO SCH (20:20)
--- NOTE | 2017-02-28 11:08 | GPROG ---
[f rep st] PROGRESS NOTE SUBJECTIVE: No new complaints or concerns. The patient rested overnight. The patient was sitting in chair on evaluation this a.m., eating breakfast. Patient is anxious for discharge home. She dillon s state that she has some new right lower extremity swelling. OBJECTIVE: VITAL SIGNS: Afebrile, vital signs stable. HEENT: Pupils equal, round, reactive to li ght. EOMIs intact. Full visual dow by confrontation. Ears are patent. Nose is patent. NEUROL OGIC: Cranial nerves 2-12 grossly intact. MOTOR: Patient has 5/5 strength in all muscle groups of bilateral upper and lower extremities. Incision is clean, dry, and intact. ASSESSMENT AND PLAN: The patient is a 71-year-old female who is status post hardware removal with a new L2-3 TLIF and laminectomy with new L1-L4 posterior fusion. Medicine on board seeing the patien t as well. She had a LUCIANO placed which was removed. Her x-rays looked good. There were no issues. The patient did develop some right lower extremity swelling and pain. An ultrasound of the right lo wer extremity was ordered this a.m. Medicine is following the patient. Hayden was removed on 02/28. We will continue to watch patient for voiding issues. Plan for discharge to home pending approval from therapies. The patient may need nursing facility. Case management on board. All questions a nd concerns were answered. The patient understands and agrees. /[id number]/MODL
[2017-02-28] MEDS: ATENOLOL 25 MG TAB PO SCH (11:18)
[2017-02-28] MEDS: LEVOTHYROXINE 150 MCG TAB PO SCH (11:18)
[2017-02-28] MEDS: ACETAMINOPHEN 500 MG TAB PO SCH ×2 (11:18→14:31)
[2017-02-28] MEDS: ENOXAPARIN 40 MG/0.4 ML SYR SC SCH (11:18)
[2017-02-28] MEDS: FLECAINIDE ACETATE 100 MG TAB PO SCH (11:18)
[2017-02-28] MEDS: POTASSIUM CL 20 MEQ TAB PO SCH (11:19)
[2017-02-28] MEDS: LIOTHYRONINE SODIUM 5 MCG TAB PO SCH (11:19)
[2017-02-28] MEDS: FUROSEMIDE 40 MG TAB PO SCH (11:19)
[2017-02-28] MEDS: GABAPENTIN 300 MG CAP PO SCH (11:19)
[2017-02-28] MEDS: VENLAFAXINE HCL 25 MG TAB PO SCH (11:19)
[2017-02-28] MEDS: SENNOSIDES/DOCUSATE SODIUM TAB PO SCH (11:19)
[2017-02-28] MEDS: POLYETHYLENE GLYCOL 3350 17 GM PKT PO SCH (11:19)
[2017-02-28 11:37] VITALS: BP 90/76; PULSE 90; RESP 16; TEMP 98.5; O2SAT 93
--- NOTE | 2017-02-28 11:53 | PDIAF ---
- Diagnosis Diagnosis: s/p L1-L4 fusion Code Status: Full Code - Medication Management Discharge Medications: Medications to Continue on Transfer Aspirin [Aspirin 81mg (*)] 81 mg PO HS 04/19/14 [Last Taken Unknown] Cyclobenzaprine [Flexeril 10 MG (*)] 20 mg PO HS 04/19/14 [Last Taken Unknown] Furosemide [Lasix 40 MG (*)] 40 mg PO DAILY 04/19/14 [Last Taken Unknown] Gabapentin [Neurontin 300 MG (*)] 600 mg PO DAILY@17 PRN 04/19/14 [Last Taken Unknown] Gabapentin [Neurontin 300 MG (*)] 900 mg PO TID 04/19/14 [Last Taken Unknown] LORazepam [Ativan (*)] 2 mg PO HS 04/19/14 [Last Taken Unknown] Liothyronine Sodium [Cytomel 5 mcg (*)] 10 mcg PO DAILY 04/19/14 [Last Taken Unknown] Potassium Cl [Klor-Con 20 meq (*)] 20 meq PO DAILY 04/19/14 [Last Taken Unknown] Venlafaxine HCl [Effexor] 100 mg PO DAILY 04/19/14 [Last Taken Unknown] traMADol [Ultram 50 mg (*)] 50 mg PO BID PRN 04/19/14 [Last Taken Unknown] traZODone [traZODONE 50MG (*)] 50 mg PO HS 04/19/14 [Last Taken Unknown] Apixaban [Eliquis] 5 mg PO BID 02/07/17 [Last Taken Unknown] Atenolol [Tenormin 25 mg (*)] 25 mg PO DAILY 02/07/17 [Last Taken Unknown] C/E/Zn/Cu/OM3/DHA/EPA/LUT/ZEAX [Preservision Areds 2 Softgel] 1 each PO DAILY [Last Taken Unknown] Docusate Sodium [Colace 100 MG (*)] 100 mg PO BID PRN 02/07/17 [Last Taken Unknown] Flecainide Acetate 50 mg PO BID 02/07/17 [Last Taken Unknown] Herbals/Supplements -Info Only 1 ea PO DAILY 02/07/17 [Last Taken Unknown] [place]-3 Fatty Acids [Fish Oil 1000 mg (*)] 1,000 mg PO DAILY 02/07/17 [Last Taken Unknown] Polyethylene Glycol 3350 [Miralax 17 gm (*)] 17 gm PO DAILY PRN 02/07/17 [Last Taken Unknown] oxyCODONE HCL/ACETAMINOPHEN [Percocet 10-325 mg Tablet] 1 each PO Q6-8PRN PRN [Last Taken Unknown] Levothyroxine [Synthroid 150 mcg (*)] 150 mcg PO DAILY06 02/17/17 [Last Taken Unknown] Enoxaparin [Lovenox 40 MG (*)] 40 mg SC DAILY #1 syr 02/28/17 [Last Taken Unknown] HYDROmorphone HCL [Dilaudid 4 mg (*)] 4 mg PO Q4HRS PRN #0 tab 02/28/17 [Last Taken Unknown] Methocarbamol [Robaxin 750 mg (*)] 750 mg PO Q6 PRN #0 tab 02/28/17 [Last Taken Unknown] Sennosides/Docusate Sodium [Senokot-S] 1 - 2 tab PO BID #30 tab 02/28/17 [Last Taken Unknown] traMADol [Ultram 50 mg (*)] 50 - 100 mg PO Q4 PRN #60 tab 02/28/17 [Last Taken Unknown] Per Diem Rn Antibiotics: none Discharge Medications: Refer to the Discharge Home Medication list for PRN reason. PICC Care - Routine: N/A - Orders Services needed: Home Care, Physical Therapy, Occupational Therapy Home Care Face to Face: I certify that this patient was under my care and that I had the required [id number] encounter meeting the encounter requirements on the discharge day. My findings support the fact that the patient is homebound as defined in CMS Chapter 7 Medicare Benefits Manual 30.1.1, The condition of the patient is such that there exists a normal inability to leave home and consequently, leaving home would require a considerable and taxing effort. Oxygen: to keep O2 sat above 90% Diet Recommendation: no restrictions on diet Diet Texture: Regular Texture Diet Tube feeding: none Hayden: Not applicable Wound Care Instructions: recheck at 10-14 days post op - Follow Up Care Current Providers and Referrals: Desiree Frausto MD [Primary Care Provider] - Alphonse Evans MD [Medical Doctor] - (follow up in 2-3 weeks post op)
[2017-02-28] MEDS: METHOCARBAMOL 750 MG TAB PO PRN (12:39)
[2017-02-28] MEDS: HYDROmorphONE/DILAUDID 4 MG TAB PO PRN (14:32)
--- NOTE | 2017-02-28 14:54 | HOSPPROG ---
Hospitalist Progress Note Assessment/Plan: 71 yo F pod 2 s/p lumbar spine surgery asymmetric edema: no dvt urinary retention: 2/2 anticholinergic effect of meds in last 24 hour, has received relatively high doses dilaudid, benadryl, hydroxyzine, oxycodone and flexeril med effect allow patients bladder to fill, straightcathing for bladder volumes > 1200 or discomfort appears to have resolved AF: clinically in sinus continue BB and flecainaide restart NOAC when OK from neurosurgery proph: lovenox pain: has continuous narcotic use and therefore high pain med requirements add scheduled tylenol R hand weakness: improving encephlaopathy: almost certainly med related I have again decreased the many prn meds constipation: increase miralax to bid give mag citrate today nursing and patient to determine timing ok to dc from med prespective Subjective: urinating OK Objective: Vital Signs Temp Pulse Resp BP Pulse Ox 36.9 C 90 16 90/76 L 93 02/28/17 08:00 02/28/17 08:00 02/28/17 08:00 02/28/17 08:00 02/28/17 08:00 Laboratory Results 02/23/17 05:20 02/23/17 05:20 02/27/17 02/28/17 03/01/17 05:59 05:59 05:59 Output Total 750 1900 2 Balance -750 -1900 -2 - Physical Exam Constitutional: no apparent distress, appears nourished, not in pain Eyes: PERRL, anicteric sclera Ears, Nose, Mouth, Throat: moist mucous membranes, hearing normal Cardiovascular: regular rate and rhythym, no murmur, rub, or gallop Respiratory: no respiratory distress, no rales or rhonchi Gastrointestinal: normoactive bowel sounds, soft, non-tender abdomen Genitourinary: No jackson in urethra Skin: warm, normal color Musculoskeletal: full muscle strength, no muscle tenderness ICD10 Worksheet Patient Problems: Problems Problem Status Onset Lumbar stenosis Acute
[2017-02-28] MEDS ORDERED: ENOXAPARIN 40 MG/0.4 ML SYR SC SCH (21:00)
== END 2017-02-28 16:02 | disposition home health service (06) | DRG 460 ==
LOC: F3N 06:12 → F2N 14:29 → F3N 02-24 12:29
PROVIDERS: ADMIT Neurological Surgery; ATTEND Neurological Surgery
PROC: 0SG1071 Fusion of 2 or more Lumbar Vertebral Joints with Autologous Tissue Substitute, Posterior Approach, Posterior Column, Open Approach (ICD-10-PCS; principal; 2017-02-22 07:15)
PROC: 0SB20ZZ Excision of Lumbar Vertebral Disc, Open Approach (ICD-10-PCS; principal; 2017-02-22 07:15)
PROC: 0SG00AJ Fusion of Lumbar Vertebral Joint with Interbody Fusion Device, Posterior Approach, Anterior Column, Open Approach (ICD-10-PCS; principal; 2017-02-22 07:15)
PROC: 0SP004Z Removal of Internal Fixation Device from Lumbar Vertebral Joint, Open Approach (ICD-10-PCS; principal; 2017-02-22 07:15)
PROC: 00NY0ZZ Release Lumbar Spinal Cord, Open Approach (ICD-10-PCS; principal; 2017-02-22 07:15)
DX: M47.26 Other spondylosis with radiculopathy, lumbar region (principal); M48.06 Spinal stenosis, lumbar region; I48.0 Paroxysmal atrial fibrillation; I50.30 Unspecified diastolic (congestive) heart failure; E03.9 Hypothyroidism, unspecified; R33.9 Retention of urine, unspecified; L29.9 Pruritus, unspecified; Z86.14 Personal history of Methicillin resistant Staphylococcus aureus infection
CPT/HCPCS: 97116-GP; 97162-GP; 97165-GO; 97530-GP; 97535-GO; C1713; G8978-GP-CJ; G8979-GP-CI; G8980-GP-CJ; G8987-GO-CL; G8988-GO-CI; G8989-GO-CJ; J0690; J1100; J1170; J1200; J1650; J2250; J2274; J2370; J2405; J2704; J3010; J7060; P9041

== ENCOUNTER → 2017-04-16 | Outpatient (CLI) | payer OTHER, MEDICARE | LOC: FIMAGING 12:00 | PROVIDERS: ATTEND Physician Assistant Surgical | DX: Z09 Encounter for follow-up examination after completed treatment for conditions other than malignant neoplasm (principal); Z98.1 Arthrodesis status ==

== ENCOUNTER → 2017-06-03 | Outpatient (CLI) | payer OTHER, MEDICARE | LOC: FIMAGING 14:17 | PROVIDERS: ATTEND Physician Assistant Surgical | DX: Z98.1 Arthrodesis status (principal) ==

== ENCOUNTER 2018-04-03 07:16 | Day surgery (SDC) | payer OTHER, MEDICARE ==
[2018-04-03] MEDS ORDERED: fentaNYL 100 MCG/2 ML INJ IVP ONE (07:18)
[2018-04-03] MEDS ORDERED: ATROPINE SULFATE 1 MG/10 ML SYR IVP ONE (07:18)
[2018-04-03] MEDS ORDERED: NS 500 ML IV ONE (07:18)
[2018-04-03] MEDS ORDERED: MIDAZOLAM 2 MG/2 ML VIAL IVP ONE (07:18)
--- NOTE | 2018-04-03 07:39 | CPEKG ---
Heart Rate: 80 RR Interval: 750 QRSD Interval: 94 QT Interval: 364 QTC Interval: 420 QRS [place]: 57 T Wave [place]: 151 EKG Severity - ABNORMAL ECG - EKG Impression: ATRIAL FIBRILLATION EKG Impression: NONSPECIFIC T ABNORMALITIES, LATERAL LEADS Electronically Signed By: Collins Longoria 06-Apr-2018 21:37:41
[2018-04-03] MEDS ORDERED: ETOMIDATE 40 MG/20 ML INJ IV ONE (07:45)
[2018-04-03 08:07] LABS: INR 1.23 (0.83-1.16); PROTIME(PATIENT) 15.7 SEC (12.0-15.0)
--- NOTE | 2018-04-03 08:58 | PDHPUP ---
History & Physical Update H&P update statement: This history and physical update is based on an assessment of the patient which was completed after admission or registration (within 24 hours), but prior to the surgery/procedure. H&P update: H&P reviewed & patient examined (patient needs cardioversion.), no change in patient's condition since H&P completed
--- NOTE | 2018-04-03 08:58 | PDPROPOC ---
Sedation Plan of Care Sedation Plan of Care: vital signs stable, mental status noted, patient educated of risks, benefits, alternatives, patient can tolerate sedation ASA Classification: ASA 3 Planned drugs: midazolam, other (etomidate) Mallampati Score: Class 4 Mallampati Reference Image: Patient passed 3-3-2 rule?: No (patient with higher risk airway... )
--- NOTE | 2018-04-03 09:42 | CPIP ---
[f rep st] INVASIVE CARDIAC PROCEDURE PROCEDURE PERFORMED: Elective DC cardioversion. INDICATION: Appropriate use criteria. The patient has paroxysmal atrial fibrillation, which is sust ained and causing fatigue and lack of energy. PROCEDURE IN DETAIL: After informed consent was obtained, n.p.o. status was confirmed, the patient r eceived intravenous conscious sedation with the use of 2 mg of Versed and 8 mg of etomidate. After a dequate sedation had been achieved, the patient underwent elective direct current cardioversion with 300 joules of biphasic countershock, delivered with a patch in the anterior and posterior position wi th subsequent return of the rhythm to normal sinus at a rate of 56. IMPRESSION: Successful elective DC cardioversion. /[id number]/MODL
--- NOTE | 2018-04-03 10:03 | CPEKG ---
Heart Rate: 72 RR Interval: 833 P-R Interval: 224 QRSD Interval: 92 QT Interval: 392 QTC Interval: 430 P [place]: 70 QRS [place]: 60 T Wave [place]: 109 EKG Severity - ABNORMAL ECG - EKG Impression: SINUS RHYTHM EKG Impression: FIRST DEGREE AV BLOCK EKG Impression: NONSPECIFIC T ABNORMALITIES, LATERAL LEADS Electronically Signed By: Collins Longoria 06-Apr-2018 21:37:27
--- NOTE | 2018-04-03 12:55 | ECHO ---
[email or web address] [address] [address] Main: [phone] Fax: Transthoracic Echocardiogram Name: SNOW CORTEZ MR#: [id number] Study Date: 04/03/2018 Study Time: 09:26 AM Date of : 1945 Age: 72 year(s) Height: 160 cm (63 in.) Weight: 113.4 kg (250 lb.) BSA: 2.13 m2 Gender: Female Examination: Echo Indication: Atrial Fibrillation Image Quality: Contrast: Requested by: Adán Trevino BP: 121 mmHg/81 mmHg Heart Rate: Rhythm: Indication: Atrial Fibrillation Procedure Staff License Distributor: Michelle Oseguera [facility] Reading Physician: Aureliano Sandoval MD Requesting Provider: Conclusions: Normal size left ventricle. Borderline concentric LV hypertrophy. Normal global systolic LV function. The ejection fraction is estimated to be 60-65 %. Grade 1 diastolic dysfunction (abnormal relaxation). Mildly dilated right ventricle. Normal RV function. The left atrium is mildly dilated. The right atrium is mildly dilated. Mild mitral valve regurgitation is present. The pulmonary artery pressure is mildly increased. The pulmonary artery pressure is moderately increased. RVSP is 44mmHG. . No pericardial effusion. Measurements: Chambers Valvular Assessment AV/MV Valvular Assessment TV/PV Normal Normal Normal Name Value Range Name Value Range Name Value Range Ao Gaby (MM): 3.1 cm (2.2 cm-3.7 AV meanP mmHg ( - ) TR Vmax: 3.12 mm/s ( - ) cm) MV E Vmax: 1.06 m/s ( - ) TR PGmax: 39 mmHg ( - ) IVSd (2D): 1.1 cm (0.6 cm-1.1 MV A Vmax: 0.27 m/s ( - ) syst. PAP: 44 mmHg ( - ) cm) MV E/A: 3.93 ( - ) LVDd (2D): 4.5 cm (3.9 cm-5.3 cm) LVDs (2D): 1.8 cm (2.1 cm-4 cm) LVPWd (2D): 0.7 cm ( - ) LVOTd 1.9 cm 1.9 cm mm LVEF (MOD4): 62 % (>=55 %) Patient: SNOW CORTEZ Study Date: 04/03/2018 Page 1 of 2 09:26 AM EF Range: 60-65 % Continued Measurements: Chambers Valvular Assessment AV/MV Valvular Assessment TV/PV Name Value Name Value Name Value LADs: 4.0 cm MV E' Septal: 0.08 m/s CVP (est.): 5 mmHg LADs Lon.8 cm MV E/E' Septal: 12.80 LA Area: 26.3 cm2 MV E/E' Lateral: 13.90 Findings: Left Ventricle: Normal size left ventricle. Borderline concentric LV hypertrophy. Normal global systolic LV function. The ejection fraction is estimated to be 60-65 %. No regional wall motion abnormality. Grade 1 diastolic dysfunction (abnormal relaxation). Right Ventricle: Mildly dilated right ventricle. Normal RV function. Left Atrium: The left atrium is mildly dilated. Right Atrium: The right atrium is mildly dilated. Mitral Valve: Mild mitral annular calcification. The mitral valve is normal in appearance and function. Mild mitral valve regurgitation is present. Aortic Valve: The aortic valve is normal in appearance and function. The aortic valve is tri-leaflet. No aortic valve stenosis is present. There is no aortic valve regurgitation. Tricuspid Valve: The tricuspid valve is normal in appearance and function. Moderate tricuspid regurgitation is present. The pulmonary artery pressure is mildly increased. The pulmonary artery pressure is moderately increased. RVSP is 44mmHG. . Pulmonic Valve: The pulmonic valve is normal in appearance and function. Trivial pulmonic valve regurgitation. Aorta: The aorta is normal. IVC: The IVC is normal sized. Pericardium: No pericardial effusion. There is pericardial fat. (No Signature Object) Patient: SNOW CORTEZ Study Date: 04/03/2018 Page 2 of 2 09:26 AM [id number]
== END 2018-04-03 10:50 | disposition home or self-care (01) ==
LOC: FCATH 07:16
PROVIDERS: ATTEND Internal Medicine Cardiovascular Disease
PROC: 5A2204Z Restoration of Cardiac Rhythm, Single (ICD-10-PCS; principal; 2018-04-03)
DX: I48.0 Paroxysmal atrial fibrillation (principal); I25.10 Atherosclerotic heart disease of native coronary artery without angina pectoris; I34.0 Nonrheumatic mitral (valve) insufficiency; I10 Essential (primary) hypertension; E03.9 Hypothyroidism, unspecified
CPT/HCPCS: J0461; J2250; J3010

== ENCOUNTER → 2018-10-31 | Outpatient (CLI) | payer OTHER, MEDICARE | LOC: BHFA 13:45 | PROVIDERS: ATTEND Physician Assistant | DX: I48.91 Unspecified atrial fibrillation (principal); I25.10 Atherosclerotic heart disease of native coronary artery without angina pectoris; I34.0 Nonrheumatic mitral (valve) insufficiency; I27.20 Pulmonary hypertension, unspecified; I10 Essential (primary) hypertension; I07.1 Rheumatic tricuspid insufficiency ==